=== PATIENT | female | born 1985 | race Caucasian/White ===

== ENCOUNTER 2018-09-09 13:57 | Inpatient (IN) | payer OTHER ==
[~2018-09-09] VITALS: Ht 163 cm; Wt 70.0 kg
[2018-09-09 14:53] VITALS: BP 122/74
[2018-09-09] MEDS ORDERED: RINGERS SOLUTION,LACTATED 1,000 ML IV ONE ×2 (14:58)
[2018-09-09] MEDS ORDERED: METOCLOPRAMIDE HCL 5 MG/ML 2 ML VIAL IVP ONE (15:00)
[2018-09-09] MEDS ORDERED: CITRIC ACID/SODIUM CITRATE 30 ML SOLUTION UDCUP PO ONE (15:00)
[2018-09-09] MEDS ORDERED: FentaNYL CITRATE-PF 100 MCG/2 ML VIAL ONE (15:04)
[2018-09-09] MEDS ORDERED: MORPHINE SULFATE/PF 0.5 MG/ML 10 ML AMP ONE (15:04)
[2018-09-09] MEDS ORDERED: GUM MASTIC/STORAX/MSAL/ALCOHOL LIQUID 0.67 ML VIAL TP ONE (15:05)
[2018-09-09] MEDS ORDERED: ACETAMINOPHEN 1000 MG/ISO-OSM 100 ML IV ONE (15:05)
[2018-09-09] MEDS ORDERED: BUPIVACAINE HCL/DEX-WATER/PF 0.75% 2 ML AMP ONE (15:05)
[2018-09-09 15:53] LABS: BASOPHILS % (AUTO) 0.2 % (0.0-2.0); EOSINOPHILS % (AUTO) 0.1 % (1.0-6.0); HEMATOCRIT 32.8 % (36-46); HEMOGLOBIN 10.7 g/dL (12.0-16.0); LYMPHOCYTES # (AUTO) 1.4 K/uL (1.0-4.8); LYMPHOCYTES % (AUTO) 13.7 % (22.0-44.0); MEAN CORPUSCULAR HEMOGLOBIN 26.6 pg (26.0-34.0); MEAN CORPUSCULAR HGB CONC 32.7 G/dL (31.0-37.0); MEAN CORPUSCULAR VOLUME 81 fL (80-100); MONOCYTES # (AUTO) 0.6 K/uL (0.1-1.0); MONOCYTES % (AUTO) 5.7 % (2.0-9.0); NEUTROPHILS % (AUTO) 80.3 % (40.0-70.0); PLATELET COUNT (AUTO)-OB 250 K/uL (150-450); RED BLOOD CELL COUNT(AUTO) 4.04 MIL/uL (4.00-5.20); RED CELL DISTRIBUTION WIDTH 15.9 % (11.5-14.5)
[2018-09-09] MEDS ORDERED: ONDANSETRON HCL 4 MG/2 ML VIAL IVP PRN ×2 (17:00)
[2018-09-09] MEDS ORDERED: NALOXONE HCL 0.4 MG/ML VIAL IVP PRN (17:00)
[2018-09-09] MEDS ORDERED: FentaNYL CITRATE-PF 100 MCG/2 ML VIAL IVP PRN (17:00)
[2018-09-09] MEDS ORDERED: NALBUPHINE HCL 10 MG/ML VIAL IVP PRN ×3 (17:00)
[2018-09-09] MEDS ORDERED: DiphenhydrAMINE HCL 50 MG/ML VIAL IVP PRN ×2 (17:00)
[2018-09-09] MEDS ORDERED: DEXAMETHASONE SOD PHOS 4 MG/ML VIAL IVP PRN (17:00)
[2018-09-09] MEDS ORDERED: DEXTROSE 5%-0.45% SODIUM CHL 1,000 ML IV SCH (18:39)
[2018-09-09] MEDS ORDERED: OxyCODONE HCL/ACETAMINOPHEN 5-325 MG TABLET PO PRN (18:45)
[2018-09-09] MEDS ORDERED: GLYCERIN/WITCH HAZEL LEAF 40 PADS JAR TP PRN (18:45)
[2018-09-09] MEDS: OXYTOCIN 20 UNITS/LACT RINGERS 1,000 ML IV SCH (19:37)
[2018-09-09] MEDS ORDERED: OXYGEN THERAPY IH SCH ×3 (20:00)
[2018-09-10] MEDS: ACETAMINOPHEN 1000 MG/ISO-OSM 100 ML IV SCH ×2 (01:14→09:22)
[2018-09-10] MEDS: OXYTOCIN 20 UNITS/LACT RINGERS 1,000 ML IV SCH (03:30)
[2018-09-10] MEDS ORDERED: EPHEDrine SULFATE 50 MG/ML VIAL IM ONE (04:31)
[2018-09-10] MEDS ORDERED: 0.9% SODIUM CHLORIDE 10 ML VIAL IVP ONE (04:31)
[2018-09-10] MEDS ORDERED: OXYTOCIN 10 UNITS/ML VIAL IM ONE (04:31)
[2018-09-10 05:58] LABS: BASOPHILS % (AUTO) 0.2 % (0.0-2.0); EOSINOPHILS % (AUTO) 0 % (1.0-6.0); HEMATOCRIT 30.7 % (36-46); HEMOGLOBIN 10.3 g/dL (12.0-16.0); LYMPHOCYTES # (AUTO) 1.5 K/uL (1.0-4.8); LYMPHOCYTES % (AUTO) 8.6 % (22.0-44.0); MEAN CORPUSCULAR HEMOGLOBIN 27.1 pg (26.0-34.0); MEAN CORPUSCULAR HGB CONC 33.6 G/dL (31.0-37.0); MEAN CORPUSCULAR VOLUME 81 fL (80-100); MONOCYTES % (AUTO) 5.5 % (2.0-9.0); NEUTROPHILS # (AUTO) 14.9 K/uL (1.8-7.7); PLATELET COUNT (AUTO)-OB 219 K/uL (150-450); RED BLOOD CELL COUNT(AUTO) 3.81 MIL/uL (4.00-5.20); RED CELL DISTRIBUTION WIDTH 15.4 % (11.5-14.5)
[2018-09-10 06:07] LABS: NEUTROPHILS % (AUTO) 85.7 % (40.0-70.0)
[2018-09-10] MEDS: MAGNESIUM HYDROXIDE SUSPENSION 30 ML UDCUP PO SCH ×2 (09:21→21:11)
[2018-09-10] MEDS: IBUPROFEN 600 MG TABLET PO PRN (13:20)
[2018-09-10] MEDS: OxyCODONE HCL/ACETAMINOPHEN 5-325 MG TABLET PO PRN (18:23)
[2018-09-11] MEDS: OxyCODONE HCL/ACETAMINOPHEN 5-325 MG TABLET PO PRN (03:53)
[2018-09-11] MEDS: IBUPROFEN 600 MG TABLET PO PRN (03:53)
[2018-09-11] MEDS: MAGNESIUM HYDROXIDE SUSPENSION 30 ML UDCUP PO SCH (09:31)
[2018-09-11] MEDS ORDERED: HYDR-4455 PO (14:42)
[2018-09-11] MEDS ORDERED: ACET-66 PO (14:43)
[2018-09-11] MEDS ORDERED: IBUP-2070 PO (14:44)
[2018-09-11] MEDS ORDERED: DSS100 PO (14:45)
== END 2018-09-11 15:40 | disposition home or self-care (01) | DRG 788 ==
LOC: 4S 13:57 → OBSVTOIN 13:57 → 4S 17:08
PROVIDERS: ADMIT Obstetrics & Gynecology; ATTEND Obstetrics & Gynecology
PROC: 10D00Z1 Extraction of Products of Conception, Low, Open Approach (ICD-10-PCS; principal; 2018-09-09)
DX: O34.211 Maternal care for low transverse scar from previous cesarean delivery (principal); Z37.0 Single live birth; Z3A.37 37 weeks gestation of pregnancy
CPT/HCPCS: 86850; 86900; 86901; 87081; J0131; J0690; J2274; J2405; J2590; J2765; J3010; J3490; J7120